=== PATIENT | female | born 1990 | race Caucasian/White ===

== ENCOUNTER 2019-05-08 18:45 | Emergency (ER) | payer OTHER, MEDICAID, SELFPAY ==
[2018-04-14 13:20] VITALS: BMI 22.7
[2019-05-08 18:47] VITALS: BP 108/72; PULSE 117; RESP 18; TEMP 36.7; O2SAT 100; BMI 20.5
[2019-05-08 18:50] VITALS: O2SAT 100
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
[2019-05-08] MEDS: 0.9% Normal Saline 1,000 ML 150 ML IV (19:08)
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
[2019-05-08 19:22] LABS: Absolute Lymphocyte Count 2.02 X10^3/uL (0.83-4.51); Absolute Neutrophil Count 13.5 X10^3/uL (2.0-7.7); Basophil# 0.05 X10^3/uL; Basophil% 0.3 % (0-1); Eosinophil# 0.03 X10^3/uL; Eosinophils% 0.2 % (0-5); Hematocrit 35.9 % (37-47); Hemoglobin 12.3 g/dL (12.0-15.0); Lymphocyte # 2.02 X10^3/ul (4.0); Lymphocyte % 12.3 % (19-41); Mean Corp Hgb Conc 34.3 g/dL (32-36); Mean Corpuscular Hgb 30.6 pg (27.0-32.0); Mean Corpuscular Volume 89.3 fL (81-99); Mean Platelet Vol. 10.4 fl (6.2-12.0); Monocyte# 0.72 X10^3/uL; Monocyte% 4.4 % (0-10); NRBC Flagged by Analyzer 0 % (0-5); Neutrophil # 13.51 X10^3/uL (2.7-7.7); Platelet Count 328 K/mm3 (150-450); RBC Distribution Width CV 11.7 % (11.6-14.6); RBC Distribution Width SD 37.6 fl (35.1-43.9); Red Blood Count 4.02 M/mm3 (4.2-5.4); White Blood Count 16.5 K/mm3 (4.4-11.0)
[2019-05-08 19:36] LABS: ALB/GLOB Ratio 1.5 RATIO (0.9-2.4); AST(SGOT) 22 U/L (15-37); Alanine Aminotransfer ALT/SGPT 24 U/L (13-56); Albumin, Serum 4.6 g/dL (3.2-5.0); Alkaline Phosphatase 48 U/L (45-117); Anion Gap 8 (5-15); BUN 10 mg/dL (7-18); BUN/Creat Ratio 12.7 RATIO (10-20); Chloride 108 mmol/L (98-107); Creatinine, Serum 0.78 mg/dL (0.55-1.02); EST Glomerular Filtration Rate 94 mL/min (>60); Est Glom Filt Rate - Afr Amer 113 mL/min (>60); Estimated Creatinine Clearance 93.86 ml/min; Glucose 125 mg/dL (74-106); Protein, Total 7.6 g/dL (6.4-8.2); Sodium Level 139 mmol/L (136-145)
--- NOTE | 2019-05-08 19:49 | EKG12_ITS ---
Test Reason : DYSRHYTHMIA Blood Pressure : / mmHG Vent. Rate : 107 BPM Atrial Rate : 107 BPM P-R Int : 094 ms QRS Dur : 080 ms QT Int : 334 ms P-R-T Axes : 047 059 042 degrees QTc Int : 445 ms Sinus tachycardia with short MA Otherwise normal ECG Confirmed by SCARLET SPEAR, RACHNA ([id number]), senior technical editor VICK SMITH ([id number]) on 05/11/2019 10:04:14 AM Referred By: LISA Confirmed By:RACHNA NOVAK MD
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
[2019-05-08 19:54] LABS: Internal QC Validated? YES +Cl - CLEAR BKGD; Pregnancy, Serum, hCG Quali. NEGATIVE Negative
[2019-05-08 19:55] LABS: Alcohol, Blood (Medical)-Serum < 3.0 mg/dL
[2019-05-08 20:22] VITALS: BP 115/72; PULSE 101; RESP 16; O2SAT 100
[2019-05-08 20:26] VITALS: BP 115/72; PULSE 101; RESP 16; O2SAT 100
[2019-05-08] MEDS: fentaNYL 100 MCG/2 ML Ampul 50 MCG IV (20:34)
== END 2019-05-08 20:40 | disposition short-term general hospital (02) ==
PROVIDERS: Emergency Provider Emergency Medicine
DX: S06.9X9A Unspecified intracranial injury with loss of consciousness of unspecified duration, initial encounter (principal); S22.22XA Fracture of body of sternum, initial encounter for closed fracture; S42.022A Displaced fracture of shaft of left clavicle, initial encounter for closed fracture; V89.2XXA Person injured in unspecified motor-vehicle accident, traffic, initial encounter; Y93.89 Activity, other specified; Y92.410 Unspecified street and highway as the place of occurrence of the external cause; M79.7 Fibromyalgia; F32.9 Major depressive disorder, single episode, unspecified
CPT/HCPCS: 70450; 71250; 72125; 73000; 80053; 80320; 84484; 84703; 85025; 93005; 96361; 96374; 99285; J7030; A4216; G0480